=== PATIENT | female | born 1965 | race Caucasian/White ===

== ENCOUNTER → 2018-06-16 | Outpatient (CLI) | payer OTHER | END | disposition home or self-care (01) | LOC: RAD 17:50 | DX: M54.9 Dorsalgia, unspecified (principal) | CPT/HCPCS: 76770 ==

== ENCOUNTER 2020-03-25 17:06 | Emergency (ER) | payer OTHER ==
[~2020-03-25] VITALS: Ht 180.3 cm; Wt 80.6 kg
[2020-03-25] MEDS ORDERED: SODIUM CHLORIDE FLUSH 10ML SYR IVF ONE (18:00)
--- NOTE | 2020-03-25 18:00 | NUR ---
PT STATES RLQ ABD PAIN AND BILAT LOW BACK PAIN OFF AND ON X1 MONTH. PT STATED U/C TOLD HER TO COME TO ER FOR U/S. PT DENIES PAINFUL URINATION. PT PLACED ON MONITORS, VSS. URINE COLLECTED. WILL FOLLOW ORDERS.
[2020-03-25 18:01] LABS: BASOPHILS # (AUTO) 0.05 x10^3/uL (0-0.1); BASOPHILS % (AUTO) 1 % (0-1); EOSINOPHILS # (AUTO) 0.29 x10^3/uL (0-0.4); EOSINOPHILS % (AUTO) 4 % (1-7); LYMPHOCYTES # (AUTO) 2.76 x10^3/uL (1-3.4); LYMPHOCYTES % (AUTO) 40 % (22-44); MD NO; MEAN CORPUSCULAR HEMOGLOBIN 30.9 pg (27.0-34.8); MEAN CORPUSCULAR HGB CONC 32.7 g/dL (32.4-35.8); MEAN CORPUSCULAR VOLUME 94.6 fL (80-100); MEAN PLATELET VOLUME 8.8 fL (7.4-10.4); MONOCYTES # (AUTO) 0.56 x10^3/uL (0.2-0.8); MONOCYTES % (AUTO) 8 % (2-9); NEUTROPHILS % (AUTO) 47 % (42-75); PLATELET COUNT 197 x10^3/uL (130-400); RED BLOOD COUNT 4.52 x10^6/uL (3.82-5.3); RED CELL DISTRIBUTION WIDTH 13.8 % (9.6-15.2)
[2020-03-25 18:10] LABS: ALANINE AMINOTRANSFERASE 36 U/L (12-78); ALBUMIN 3.8 g/dL (3.4-5.0); ANION GAP 3 mmol/L (5-15); CALCIUM 8.9 mg/dL (8.5-10.1); CHLORIDE 109 mmol/L (98-107)
[2020-03-25 18:13] LABS: ALKALINE PHOSPHATASE 59 U/L (45-117); BILIRUBIN,TOTAL 0.2 mg/dL (0.2-1.0); CREATININE 0.74 mg/dL (0.55-1.02); TOTAL PROTEIN 7.1 g/dL (6.4-8.2)
[2020-03-25 18:18] LABS: MICROSCOPIC AUTO
--- NOTE | 2020-03-25 18:41 | NUR ---
PT RESTING IN BED, REMAINS ON MONITORS, VSS. PT AWAITING ALL RESULTS AND IMAING. CONT TO MONITOR.
--- NOTE | 2020-03-25 19:01 | NUR ---
REPORT GIVEN TO GEORGIE STOVALL.
--- NOTE | 2020-03-25 19:18 | NUR ---
PT REQUESTING WATER. PA INFORMED. NPO UNTIL SONO RESULTS. PT INFORMED. SONO AT BEDSIDE AT THIS TIME.
--- NOTE | 2020-03-25 19:36 | NUR ---
SONO COMPLETED. PT NOW DENIES PAIN. POC DISCUSSED. PT DENIES FURTHER NEEDS AT THIS TIME.
--- NOTE | 2020-03-25 19:51 | NUR ---
PT UP FOR RECHECK AT THIS TIME.
--- NOTE | 2020-03-25 20:24 | NUR ---
POC DISCUSSED. PT REQUESTING TO SPEAK TO PROVIDER. PA INFORMED. PT GIVEN WATER PER REQUEST. PT DENIES FURTHER NEEDS AT THIS TIME.
[2020-03-25 20:27] VITALS: BP 121/74
--- NOTE | 2020-03-25 20:37 | NUR ---
MD AT BEDSIDE DISCUSSING POC.
== END 2020-03-25 20:48 | disposition home or self-care (01) ==
LOC: ED 18:21
DX: R10.13 Epigastric pain (principal); R10.11 Right upper quadrant pain; F17.200 Nicotine dependence, unspecified, uncomplicated
CPT/HCPCS: 36415; 76700; 80053; 81001; 83690; 85025; 87086; 99284